=== PATIENT | male | born 1985 | race Caucasian/White ===

== ENCOUNTER 2024-01-01 15:05 | Outpatient (OUT) | payer BC, SELFPAY ==
[2024-01-01 15:22] LABS: Basophils Absolute Auto 0.1 10^3/uL (0.0-0.1); Basophils Percent Auto 0.9 % (0.2-2.0); Eosinophils Absolute Auto 0.3 10^3/uL (0.0-0.7); Eosinophils Percent Auto 3.9 % (0.9-7.0); Hematocrit 46.6 % (42.0-54.0); Hemoglobin 16.8 g/dL (14.0-18.0); Immature Granulocytes Abs Auto 0.01 10^3/uL (0.00-0.03); Immature Granulocytes Pct Auto 0.1 % (0.0-0.5); Lymphocytes Absolute Auto 2.2 10^3/uL (1.2-3.8); Lymphocytes Percent Auto 24.9 % (20.5-60.0); Mean Corpuscular HGB Conc 36.1 g/dL (29.9-35.2); Mean Corpuscular Hemoglobin 32.3 pg (25.9-34.0); Mean Corpuscular Volume 89.6 fL (80.0-94.0); Mean Platelet Volume 9.3 fL (9.5-13.5); Monocytes Absolute Auto 0.6 10^3/uL (0.3-0.8); Monocytes Percent Auto 6.6 % (1.7-12.0); Neutrophils Absolute Auto 5.5 10^3/uL (1.4-6.5); Neutrophils Percent Auto 63.6 % (43.0-75.0); Platelet Count 191 10^3/uL (150-450); Red Cell Distribution Width 12.1 % (11.0-15.0); White Blood Count 8.6 10^3/uL (4.0-11.0)
[2024-01-01 16:34] LABS: Estimated Average Glucose 82 mg/dL; Glycohemoglobin A1C 4.5 % (4.5-6.2)
[2024-01-01 16:39] LABS: Alanine Aminotransferase 108 U/L (16-63); Albumin Globulin Ratio 1.5; Albumin Level 4.4 g/dL (3.4-5.0); Alkaline Phosphatase 65 U/L (46-116); Aspartate Amino Transferase 57 U/L (15-37); BUN Creatinine Ratio 13.8; Bilirubin Total 1.8 mg/dL (0.2-1.0); Calcium 9.7 mg/dL (8.5-10.1); Carbon Dioxide 29.1 mmol/L (21.0-32.0); Chloride 105 mmol/L (98-107); Chol HDL Ratio 3.9; Cholesterol 131 mg/dL (<=200); Estimated GFR (African America >60 (>=60); Estimated GFR (Non-African Ame >60 (>=60); Free T3 2.19 pg/mL (2.18-3.98); Glucose 85 mg/dL (74-106); HDL Cholesterol 34 mg/dL (40-60); Potassium 4.1 mmol/L (3.5-5.1); Sodium 142 mmol/L (136-145); Thyroid Stimulating Hormone 1.557 uIU/mL (0.358-3.740); Total Protein 7.4 g/dL (6.4-8.2); Triglycerides 322 mg/dL (<=150); VLDL CHOLESTEROL 64.4 mg/dL
== END 2024-01-01 15:06 | disposition home or self-care (01) ==
LOC: LAB 15:08
PROVIDERS: PCP Family Medicine; Visit Provider Family Medicine
DX: Z00.00 Encounter for general adult medical examination without abnormal findings (principal)
CPT/HCPCS: 36415; 80053; 80061; 83036; 84436; 84443; 84481; 85025

== ENCOUNTER 2024-01-10 10:36 | Outpatient (OUT) | payer BC, SELFPAY ==
--- NOTE | 2024-01-10 | US_ITS ---
The [address] [address] Patient Name: SCOUT MONROY MRN: [id number] date: 1985 Sex: M Assigned Patient Location: US Current Patient Location: Accession/Order Number: [id number] Exam Date: 01/10/2024 10:46 Report Date: 01/13/2024 07:34 At the request of: GI OLIVO Procedure: US right upper quadrant EXAM: US right upper quadrant HISTORY: ELEVATED LIVER ENZYMES R74.8 COMPARISON: None. TECHNIQUE: Grayscale, color and Doppler FINDINGS: The liver is normal in size and contour measuring 16.3 cm in length. Diffuse increase in hepatic echotexture with no focal mass. Hepatopedal flow in the main portal vein. The gallbladder is normal. Negative sonographic Glover sign. The wall measures 1.9 mm per the common bile duct measures 3.8 mm. Visualized pancreas is normal The right kidney is normal measuring 13.0 x 5.3 x 5.2 cm. The cortex measures 1.4 cm. US/US right upper quadrant IMPRESSION: Echogenic liver cyst consistent with hepatic steatosis Electronically authenticated by: PEDRO MADDOX Date: 01/13/2024 07:34
--- OUTSIDE RECORDS SUMMARY | 2024-01-10 10:39 | XMS_ITS | CCD ---
Author Organization [facility] Care Team Providers Care Assembly Machine Tender Name Role Phone BECKIE ., DR RADHA Frank Attending Unavailable BECKIE ., DR RADHA Frank Consulting Unavailable BECKIE ., DR RADHA Frank Primary Care Unavailable BECKIE ., DR RADHA Frank Admitting Unavailable Allergies Allergy Classification Reported Allergen(s) Allergy Type Date of Onset Reaction(s) Facility (1 source) Sulfonamides (Antibiotic) Drug allergy (disorder) The [facility] Repository Problems Active Problems Problem Classification Problem Date Documented Da te Episodic/Chronic Unclassified (3 sources) CONTACT W/AND (SUSP) EXPOS COVID-19; Translations: [CONTACT W/AND (SUSP) EXPOS COVID-19] Onset: 05-22-2022 Past or Other Problems Problem Classification Problem Date Documented Da te Episodic/Chronic Unclassified (1 source) CONTACT W/AND (SUSP) EXPOS COVID-19; Translations: [CONTACT W/AND (SUSP) EXPOS COVID-19] Onset: 05-20-2022 Results Test Name Value Interpretation Reference Range Facil ity Covid-19 PCR (CVDTBH)on 05-02 SARS-CoV-2 (COVID-19) RNA ANGELES+probe Ql (Unsp spec) Not detected Normal NOT DETECTED [facility] Comment on above: Result Comment: This test is not yet approved or cleared by the [place] FDA. When there are no FDA-approved or cleared tests available, and other criteria are met, FDA can make tests available under an emergency access mechanism called an Emergency Use Authorization (EUA). The EUA for this test is supported by the [place] of Health and Human Service's (HHS's) declaration that circumstances exist to justify the emergency use of in vitro diagnostics for the detection and/or diagnosis of the virus that causes COVID-19. This EUA will remain in effect (meaning this test can be used) for the duration of the COVID-19 declaration justifying emergency of IVDs, unless it is terminated or revoked by FDA (after which the test may no longer be used). When diagnostic testing is negative, the possibility of a false negative should be considered in the context of a patient's recent exposures and the presence of clinical signs and symptoms consistent with SARS-CoV-2. Performed By: #### C VDTB #### [facility] [address] [place] [address] Dr. Taty Brar INFLUENZA A AND B AGon 05-20 [facility] SEE BELOW Normal [facility] Comment on above: Result Comment: Nega tive for Flu A protein angiten. Infection due to Flu A cannot be ruled out. Flu A angiten in the sample may be below the detection limit of the test. Performed By: #### I NFLUAB #### [facility] [address] [place] [address] Dr. Taty Brar [facility] SEE BELOW Normal [facility] Comment on above: Result Comment: Nega tive for Flu B protein antigen. Infection due to Flu B cannot be ruled out. Flu B antigen in the sample may be below the detection limit of the test. Performed By: #### I NFLUAB #### [facility] [address] [place] [address] Dr. Taty Brar INFLUENZA A AG Negative Normal NEGATIVE SEE COMMENT [facility] Comment on above: Performed By: #### I NFLUAB #### [facility] [address] [place] [address] Dr. Taty Brar INFLUENZA B AG Negative Normal NEGATIVE SEE COMMENT [facility] Comment on above: Performed By: #### I NFLUAB #### [facility] [address] [place] [address] Dr. Taty Brar INTERNAL CONTROLS Within Normal Limits Normal Wi thin Normal Limits [facility] Comment on above: Performed By: #### I NFLUAB #### [facility] [address] [place] [address] Dr. Taty Brar Encounters Encounter Date Encounter Type Care Provider Facility Start: 05-20-2022 End: 05-20-[address] RADHA BUTTS . Facility: Payers Date Payer Category Payer Unknown [id number] 1961 Unknown [id number] Summary Purpose Family History No Family History Records Found Advance Directives No Advanced Directives Records Found Additional Source Comments (unrecognized sect ion and content) No Status Records Found INFORMATION SOURCE (unrecogn ized section and content) DATE CREATED AUTHOR 09/27/2022 [facility] FOR RECORDS PERTAINING TO PATIENTS WHO ARE OR HAVE BEEN ENROLLED IN A CHEMICAL DEPENDENCY/SUBSTANCEABUSE PROGRAM, SOME INFORMATION MAY BE OMITTED. This clinical summary was aggregated from multiple sources. Caution should be exercised in using it in the provision of clinical care. This summary normalizes information from multiple sources, and as a consequence, information in this document may materially change the coding, format and clinical context of patient data. In addition, data may be omitted in some cases. CLINICAL DECISIONS SHOULD BE BASED ON THE PRIMARY CLINICAL RECORDS. [facility] [employer] [facility]. provides no warranty or guarantee of the accuracy or completeness of information in this document.
== END 2024-01-10 10:37 | disposition home or self-care (01) ==
PROVIDERS: PCP Family Medicine; Visit Provider Family Medicine
DX: R74.8 Abnormal levels of other serum enzymes (principal); K76.0 Fatty (change of) liver, not elsewhere classified
CPT/HCPCS: 76705

== ENCOUNTER 2024-05-07 19:03 | Emergency (ER) | payer BC, SELFPAY ==
[2024-05-07 19:18] VITALS: BP 157/90; PULSE 62; TEMP 36.8; O2SAT 98; BMI 33.4
[2024-05-07] MEDS: LIDOCAINE HCL 1% 100 MG/10 ML MDV INJ (19:48)
[2024-05-07] MEDS: LIDOCAINE/EPINEPHRINE/TETRACAINE 3 ML GEL.PF.APP TOPICAL (19:48)
--- NOTE | 2024-05-07 20:23 | ED.GENADUL1 ---
HPI HPI - General Adult General Chief complaint: Wound/Laceration Stated complaint: laceration Time Seen by Provider: 05/07/24 19:22 Source: patient Mode of arrival: walk-in Limitations: no limitations History of Present Illness HPI narrative: 38-year-old male presents here with chief complaint of accidental laceration to the left little finger. Patient was playing with daughter and accidentally caught the tip of scissors. He has 2 superficial lacerations to the medial aspect of the left little pinky. Patient has full range of motion. The injury occurred just prior arrival. He presents to the ER with the finger wrapped. There is no pulsatile bleeding noted. Patient is not up-to-date on tetanus immunization. Patient does have full range of motion. He has tactile sense noted also the distal tip initially. Related Data Home Medications ?Medication ?Instructions ?Recorded ?Confirmed bisoprolol 10 tab 05/07/24 mg-hydrochlorothiazide 6.25 mg tablet Previous Rx's ?Medication ?Instructions ?Recorded cephalexin 500 mg capsule 500 mg PO BID 10 days #20 caps 05/07/24 Allergies Allergy/AdvReac Type Severity Reaction Status Date / Time Sulfa (Sulfonamide AdvReac Mild Vomiting Verified 05/07/24 19:18 Antibiotics) Opioid HPI Opioid Management Most Recent Opioid Data: No Data to Display Review of Systems ROS Narrative All Systems are negative except as noted/marked.All systems reviewed and otherwise negative PFSH PFSH Social History Little interest or pleasure in doing things: not at all Feeling down, depressed, or hopeless: not at all Exam Narrative Exam Narrative: Nurses note and vital signs reviewed and patient is not hypoxic. General: The patient appears well and in no apparent distress. Patient is resting comfortably on cart. Skin: Warm, dry, no pallor noted. There is no rash noted. Head: Normocephalic, atraumatic Musculoskeletal: Laceration noted to the distal aspect of the little finger, 1 laceration is jagged and measures 1.5 cm second laceration superficial measures 1 cm, good tactile sense good capillary fill distally to the laceration, remainder of extremities are unremarkable. Neurological: A&O x4, normal speech Psychiatric: Cooperative Constitutional Vital Signs, click to edit/add: Last Vital Signs Temp 98.3 F 05/07/24 19:18 Pulse 72 05/07/24 20:53 Resp 16 05/07/24 20:53 BP 142/86 H 05/07/24 20:53 Pulse Ox 100 05/07/24 20:53 O2 Del Method Room Air 05/07/24 19:18 Course Vital Signs Vital signs: Vital Signs Temperature 98.3 F 05/07/24 19:18 Pulse Rate 62 05/07/24 19:18 Respiratory Rate 18 05/07/24 19:18 Blood Pressure 157/90 H 05/07/24 19:18 Pulse Oximetry 98 05/07/24 19:18 Oxygen Delivery Method Room Air 05/07/24 19:18 Temperature 98.3 F 05/07/24 19:18 Pulse Rate 72 05/07/24 20:53 Respiratory Rate 16 05/07/24 20:53 Blood Pressure 142/86 H 05/07/24 20:53 Pulse Oximetry 100 05/07/24 20:53 Oxygen Delivery Method Room Air 05/07/24 19:18 Medical Decision Making MDM Narrative Medical decision making narrative: Patient presents to the ED with superficial laceration noted to the left little finger. Wound was anesthetized 1% lidocaine solution locally. 2 superficial lacerations noted. Smaller laceration was cleaned irrigated with Hibiclens normal saline +1% lidocaine solution simple sutures with 4-0 Ethilon x 2. Second jagged laceration noted to the medial aspect of the left little finger anesthetized with lidocaine solution x 2 cc wound was cleaned irrigated Hibiclens normal saline. Wound then reapproximated with 4-0 Ethilon suture x 5 simple sutures. Procedure tolerated well. Patient be placed prophylactically on Keflex. He was given an update on his tetanus immunization here. Suture removal instructions were also given patient will have sutures removed in 7 to 10 days. I did also explain the patient to not place his hands in dirty water or soap water bathtub or hot tubs. He verbalized her standing plan of care. Differential Diagnosis Differential Diagnosis: laceration, abrasion Medical Records Medical records reviewed: Yes I reviewed the patient's medical records Discharge Plan Discharge Chief Complaint: Wound/Laceration Clinical Impression: Laceration Patient Disposition: Home, Self-Care Time of Disposition Decision: 20:21 Condition: Good Prescriptions / Home Meds: New cephalexin 500 mg capsule 500 mg PO BID 10 Days Qty: 20 0RF No Action bisoprolol-hydrochlorothiazide 10-6.25 mg tablet Print Language: Chinese Instructions: Care For Your Stitches (ED) Referrals: Jaiden Kline MD [Primary Care Provider] - 1 week Discharge Date/Time: 05/07/24 20:54
[2024-05-07] MEDS: CEPHALEXIN 500 MG CAPSULE PO (20:43)
[2024-05-07] MEDS: ADACEL DIPH,PERTUSS(ACELL),TET VAC/PF 0.5 ML ADULT SYRINGE IM (20:43)
[2024-05-07 20:53] VITALS: BP 142/86; PULSE 72; O2SAT 100
== END 2024-05-07 20:54 | disposition home or self-care (01) ==
PROVIDERS: Emergency Provider Emergency Medicine; PCP Family Medicine
DX: S61.217A Laceration without foreign body of left little finger without damage to nail, initial encounter (principal); Z23 Encounter for immunization; W26.8XXA Contact with other sharp object(s), not elsewhere classified, initial encounter
CPT/HCPCS: 12001; 90471; 90715; 99284